=== PATIENT | male | born 1975 | race Caucasian/White ===

== ENCOUNTER 2021-04-22 05:25 | Inpatient (IN) | payer BC ==
[2021-04-22] MEDS ORDERED: SODIUM CHLORIDE 0.9% 500 ML INFUS.BAG IV ONE (06:32)
[2021-04-22] MEDS ORDERED: chlordiazePOXIDE HCL 25 MG CAPSULE PO ONE (06:43)
[2021-04-22 07:04] LABS: HEMATOCRIT 18.3 % (35.4-49); MCH 37.7 pg (25.7-33.7); MCHC 33.7 g/dl (32.0-35.9); MEAN CELL VOLUME 111.9 fl (80-96); MEAN PLT VOLUME 9.7 fl (7.5-11.1); PLATELET COUNT 146 10^3/uL (134-434); RBC 1.63 M/mm3 (4.00-5.60); RDW 14.4 % (11.9-15.9)
[2021-04-22 07:09] LABS: HEMOGLOBIN 6.2 GM/dL (11.7-16.9)
[2021-04-22 07:10] LABS: CALCIUM 7.4 mg/dL (8.5-10.1); LIPASE 339 U/L (73-393)
[2021-04-22 07:11] LABS: ALBUMIN 2.2 g/dl (3.4-5.0)
[2021-04-22 07:14] LABS: CREATININE 2.6 mg/dL (0.55-1.3)
[2021-04-22 07:15] LABS: BILIRUBIN,TOTAL 1.4 mg/dL (0.2-1)
[2021-04-22] MEDS ORDERED: PANTOPRAZOLE SODIUM 40 MG VIAL IVPUSH ONE ×2 (07:16→07:26)
[2021-04-22] MEDS ORDERED: CEFTRIAXONE 1,000 MG in DEXTROSE 5%-WATER - 50 ML IVPB ONE (07:17)
[2021-04-22] MEDS ORDERED: PANTOPRAZOLE SODIUM 80 MG in SODIUM CHLORIDE 100 ML IVPB SCH (07:17)
[2021-04-22] MEDS ORDERED: THIAMINE HCL 200 MG/2 ML VIAL IVPB ONE (07:24)
[2021-04-22] MEDS ORDERED: FOLIC ACID INJECTION - 1 MG, THIAMINE HCL 100 MG, MULTIVIT INJECTION ADULT 10 ML in SOD... IVPB ONE (07:24)
[2021-04-22] MEDS ORDERED: CEFTRIAXONE 1 GM/50 ML BAG ONE (07:29)
[2021-04-22] MEDS ORDERED: PANTOPRAZOLE SODIUM 40 MG/100 ML BAG IVPB ONE (07:29)
[2021-04-22 07:30] LABS: MAGNESIUM 2.1 mg/dL (1.8-2.4)
[2021-04-22] MEDS ORDERED: LORazepam 2 MG/ML SDV VIAL IVPUSH ONE ×3 (07:33→21:27)
[2021-04-22] MEDS ORDERED: THIAMINE HCL 200 MG/2 ML VIAL ONE (08:31)
[2021-04-22 08:55] LABS: LACTIC ACID 11.1 mmol/L (0.4-2.0)
[2021-04-22 09:17] LABS: INR 1.85 (0.83-1.09); PROTHROMBIN TIME (PATIENT) 22.3 SEC (9.7-13.0)
[2021-04-22 09:19] LABS: ACTIVATED PTT 28.9 SECONDS (25.2-36.5)
[2021-04-22] MEDS ORDERED: diazePAM CARPU-JECT 10 MG/2 ML DISP.SYRIN IVPUSH STA (10:07)
[2021-04-22] MEDS ORDERED: DEXMEDETOMIDINE IN 0.9 % NACL 400 MCG/100 ML VIAL IVPB SCH (10:15)
[2021-04-22] MEDS ORDERED: PHYTONADIONE 10 MG/1 ML AMP SQ ONE (10:15)
[2021-04-22] MEDS: OCTREOTIDE ACETATE 200 MCG, OCTREOTIDE ACETATE 1,000 MCG in DEXTROSE 5%-WATER - 496 ML IVPB SCH (10:27)
[2021-04-22] MEDS: PANTOPRAZOLE SODIUM 80 MG in SODIUM CHLORIDE 100 ML IVPB SCH ×2 (10:41→20:51)
[2021-04-22] MEDS ORDERED: PT OWN MED DRAWER 7, Y5N ONE ×2 (10:53→17:30)
[2021-04-22] MEDS: DEXMEDETOMIDINE IN 0.9 % NACL 400 MCG/100 ML VIAL IVPB SCH (10:54)
[2021-04-22 12:00] LABS: ANISOCYTOSIS 2+; MACROCYTOSIS 2+; PLATELET ESTIMATE DECREASED
[2021-04-22] MEDS: SODIUM CHLORIDE 1,000 ML IV SCH ×2 (12:13→20:40)
[2021-04-22 14:21] LABS: PHOSPHOROUS 2.1 mg/dL (2.5-4.9)
[2021-04-22] MEDS ORDERED: LORazepam 2 MG/ML SDV VIAL IVPUSH PRN ×2 (17:47→17:55)
[2021-04-22 19:16] LABS: HEMATOCRIT 24.5 % (35.4-49); HEMOGLOBIN 8.5 GM/dL (11.7-16.9); MCH 35.5 pg (25.7-33.7); MCHC 34.9 g/dl (32.0-35.9); MEAN CELL VOLUME 101.6 fl (80-96); RBC 2.41 M/mm3 (4.00-5.60); RDW 17.3 % (11.9-15.9); WHITE BLOOD COUNT 24.3 K/mm3 (4.0-10.0)
[2021-04-22 20:20] LABS: MEAN PLT VOLUME 10.1 fl (7.5-11.1); PLATELET COUNT 88 10^3/uL (134-434)
[2021-04-22] MEDS ORDERED: SODIUM PHOSPHATE - 15 MM in SODIUM CHLORIDE 250 ML IVPB ONE (21:57)
[2021-04-23] MEDS ORDERED: LORazepam 2 MG/ML SDV VIAL IVPUSH ONE ×4 (00:01→06:00)
[2021-04-23] MEDS: LORazepam 2 MG/ML SDV VIAL IVPUSH PRN ×2 (03:01→09:50)
[2021-04-23] MEDS ORDERED: PT OWN MED DRAWER 7, Y5N ONE (03:03)
[2021-04-23] MEDS: PANTOPRAZOLE SODIUM 80 MG in SODIUM CHLORIDE 100 ML IVPB SCH ×2 (05:32→18:22)
[2021-04-23] MEDS: SODIUM CHLORIDE 1,000 ML IV SCH ×3 (05:34→14:26)
[2021-04-23 06:49] LABS: BASO % 0.4 % (0-2.0); EOS % 0.2 % (0-4.5); HEMATOCRIT 26.2 % (35.4-49); LYMPH % 25.5 % (8-40); MCH 35.2 pg (25.7-33.7); MCHC 34.2 g/dl (32.0-35.9); MEAN CELL VOLUME 102.9 fl (80-96); MEAN PLT VOLUME 9.6 fl (7.5-11.1); MONO % 11.8 % (3.8-10.2); NEUT % 62.1 % (42.8-82.8); PLATELET COUNT 121 10^3/uL (134-434); RBC 2.55 M/mm3 (4.00-5.60); RDW 18.6 % (11.9-15.9); WHITE BLOOD COUNT 26.1 K/mm3 (4.0-10.0)
[2021-04-23 06:53] LABS: INR 1.59 (0.83-1.09); PROTHROMBIN TIME (PATIENT) 19.3 SEC (9.7-13.0)
[2021-04-23 06:55] LABS: ACTIVATED PTT 27.4 SECONDS (25.2-36.5)
[2021-04-23 07:03] LABS: CHLORIDE 114 mmol/L (98-107); SODIUM 143 mmol/L (136-145)
[2021-04-23 07:10] LABS: ANION GAP 7 MMOL/L (8-16); BLOOD UREA NITROGEN 50.9 mg/dL (7-18); CO2 22 mmol/L (21-32); GLUCOSE,RANDOM 119 mg/dL (74-106)
[2021-04-23 07:12] LABS: SGPT/ALT 55 U/L (13-61)
[2021-04-23 07:13] LABS: CREATININE 1.1 mg/dL (0.55-1.3); PHOSPHOROUS 3.4 mg/dL (2.5-4.9); SGOT/AST 94 U/L (15-37)
[2021-04-23 07:14] LABS: BILIRUBIN,TOTAL 1.7 mg/dL (0.2-1); TOT PROT 5.6 g/dl (6.4-8.2)
[2021-04-23 07:16] LABS: ALK PHOS 82 U/L (45-117)
[2021-04-23 08:20] LABS: CALCIUM 6.7 mg/dL (8.5-10.1)
[2021-04-23] MEDS ORDERED: CEFTRIAXONE 1 GM in DEXTROSE 5%-WATER - 50 ML IVPB SCH (10:00)
[2021-04-23] MEDS ORDERED: cefTRIAXone SODIUM 1 GM VIAL ONE (10:19)
[2021-04-23] MEDS ORDERED: DEXTROSE 5%-WATER - 50 ML IVPB ONE (10:19)
[2021-04-23 10:39] LABS: ANISOCYTOSIS 1+; MACROCYTOSIS 1+; PLATELET ESTIMATE DECREASED; ROULEAU 1+
[2021-04-23 10:50] LABS: URINE APPEARANCE CLEAR; URINE BILIRUBIN NEGATIVE (NEGATIVE); URINE COLOR YELLOW; URINE GLUCOSE (UA) NEGATIVE (NEGATIVE); URINE KETONE NEGATIVE (NEGATIVE); URINE LEUK ESTERASE NEGATIVE (NEGATIVE); URINE NITRITE NEGATIVE (NEGATIVE); URINE PROTEIN NEGATIVE (NEGATIVE)
[2021-04-23] MEDS: DEXMEDETOMIDINE IN 0.9 % NACL 400 MCG/100 ML VIAL IVPB SCH (16:04)
[2021-04-24] MEDS: LORazepam 2 MG/ML SDV VIAL IVPUSH PRN (00:56)
[2021-04-24 06:38] LABS: BASO % 0.4 % (0-2.0); EOS % 1.2 % (0-4.5); HEMATOCRIT 21.4 % (35.4-49); HEMOGLOBIN 7.2 GM/dL (11.7-16.9); MCH 35.3 pg (25.7-33.7); MCHC 33.6 g/dl (32.0-35.9); MEAN CELL VOLUME 104.8 fl (80-96); MEAN PLT VOLUME 8.9 fl (7.5-11.1); MONO % 12.7 % (3.8-10.2); NEUT % 61.7 % (42.8-82.8); PLATELET COUNT 99 10^3/uL (134-434); RBC 2.04 M/mm3 (4.00-5.60); RDW 19.5 % (11.9-15.9); WHITE BLOOD COUNT 11.2 K/mm3 (4.0-10.0)
[2021-04-24 06:48] LABS: INR 1.68 (0.83-1.09)
[2021-04-24 06:55] LABS: CHLORIDE 123 mmol/L (98-107); SODIUM 149 mmol/L (136-145)
[2021-04-24 06:59] LABS: MAGNESIUM 2.8 mg/dL (1.8-2.4)
[2021-04-24 07:03] LABS: PHOSPHOROUS 2.6 mg/dL (2.5-4.9)
[2021-04-24 07:05] LABS: ALBUMIN 1.6 g/dl (3.4-5.0); ANION GAP 5 MMOL/L (8-16); CO2 21 mmol/L (21-32); GLUCOSE,RANDOM 109 mg/dL (74-106)
[2021-04-24 07:08] LABS: BILIRUBIN,DIRECT 0.7 mg/dL (0.0-0.2); CREATININE 0.8 mg/dL (0.55-1.3); SGOT/AST 76 U/L (15-37); SGPT/ALT 52 U/L (13-61)
[2021-04-24 07:09] LABS: TOT PROT 4.7 g/dl (6.4-8.2)
[2021-04-24 07:11] LABS: ALK PHOS 75 U/L (45-117); BILIRUBIN,TOTAL 1.7 mg/dL (0.2-1)
[2021-04-24] MEDS: PANTOPRAZOLE SODIUM 80 MG in SODIUM CHLORIDE 100 ML IVPB SCH ×2 (07:11→07:12)
[2021-04-24] MEDS: DEXMEDETOMIDINE IN 0.9 % NACL 400 MCG/100 ML VIAL IVPB SCH ×2 (07:12→17:22)
[2021-04-24 07:14] LABS: BLOOD UREA NITROGEN 24.4 mg/dL (7-18); CALCIUM 6.7 mg/dL (8.5-10.1)
[2021-04-24] MEDS ORDERED: LACTATED RINGERS SOLUTION 1,000 ML/1,000 ML INFUS.BAG IV SCH ×3 (08:00→15:38)
[2021-04-24] MEDS ORDERED: LORazepam 2 MG/ML SDV VIAL IVPUSH PRN (08:18)
[2021-04-24] MEDS ORDERED: cefTRIAXone SODIUM 1 GM VIAL ONE (09:23)
[2021-04-24] MEDS ORDERED: DEXTROSE 5%-WATER - 50 ML IVPB ONE (09:24)
[2021-04-24] MEDS: CEFTRIAXONE 1 GM in DEXTROSE 5%-WATER - 50 ML IVPB SCH (09:30)
[2021-04-24 11:51] LABS: HEMATOCRIT 23.3 % (35.4-49); HEMOGLOBIN 7.9 GM/dL (11.7-16.9); MCH 35.5 pg (25.7-33.7); MCHC 33.8 g/dl (32.0-35.9); MEAN PLT VOLUME 8.8 fl (7.5-11.1); PLATELET COUNT 105 10^3/uL (134-434); RBC 2.21 M/mm3 (4.00-5.60); WHITE BLOOD COUNT 11.5 K/mm3 (4.0-10.0)
[2021-04-24] MEDS ORDERED: AMINO ACIDS 4.25%/D5W 1,000 ML IV SCH (15:00)
[2021-04-24] MEDS: MULTIVIT INJ. ADULT COMBO WITH VIT K 1 COMBO 10 ML VIAL IV SCH (17:21)
[2021-04-24] MEDS: THIAMINE HCL 200 MG/2 ML VIAL IVPB SCH (18:05)
[2021-04-24] MEDS: PANTOPRAZOLE SODIUM 40 MG VIAL IVPUSH SCH (22:37)
[2021-04-25 07:10] LABS: HEMATOCRIT 23.3 % (35.4-49); HEMOGLOBIN 8.1 GM/dL (11.7-16.9); MCH 36.1 pg (25.7-33.7); MCHC 34.7 g/dl (32.0-35.9); MEAN CELL VOLUME 104.1 fl (80-96); MEAN PLT VOLUME 9.5 fl (7.5-11.1); PLATELET COUNT 133 10^3/uL (134-434); RBC 2.23 M/mm3 (4.00-5.60); RDW 19.8 % (11.9-15.9); WHITE BLOOD COUNT 12.3 K/mm3 (4.0-10.0)
[2021-04-25 07:28] LABS: BLOOD UREA NITROGEN 14.7 mg/dL (7-18)
[2021-04-25 07:31] LABS: CREATININE 0.7 mg/dL (0.55-1.3)
[2021-04-25 07:32] LABS: BILIRUBIN,TOTAL 1.8 mg/dL (0.2-1); TOT PROT 5.6 g/dl (6.4-8.2)
[2021-04-25] MEDS ORDERED: DEXTROSE 5%-WATER - 50 ML IVPB ONE (08:02)
[2021-04-25] MEDS ORDERED: cefTRIAXone SODIUM 1 GM VIAL ONE (08:02)
[2021-04-25] MEDS: KCL 10 MEQ IVPB 10 MEQ/100 ML INFUS.BAG IVPB SCH ×2 (08:08→08:59)
[2021-04-25] MEDS: CEFTRIAXONE 1 GM in DEXTROSE 5%-WATER - 50 ML IVPB SCH (08:59)
[2021-04-25] MEDS: THIAMINE HCL 200 MG/2 ML VIAL IVPB SCH (08:59)
[2021-04-25] MEDS: PANTOPRAZOLE SODIUM 40 MG VIAL IVPUSH SCH ×2 (08:59→21:06)
[2021-04-25] MEDS ORDERED: PT OWN MED DRAWER 7, Y5N ONE (09:56)
[2021-04-25] MEDS ORDERED: FOLIC ACID 5 MG/1 ML SQ SCH (10:00)
[2021-04-25] MEDS ORDERED: LACTATED RINGERS SOLUTION 1,000 ML/1,000 ML INFUS.BAG IV SCH ×2 (11:30→11:32)
[2021-04-25] MEDS ORDERED: LORazepam 0.5 MG TABLET PO ONE (13:17)
[2021-04-25] MEDS ORDERED: LORazepam 1 MG TABLET PO PRN (13:19)
[2021-04-25] MEDS ORDERED: NADOLOL 20 MG TABLET (FP) PO ONE (15:00)
[2021-04-25] MEDS ORDERED: POTASSIUM CHLORIDE ORAL LIQUID 20 MEQ/15 ML PO ONE (18:39)
[2021-04-25] MEDS: MULTIVIT INJ. ADULT COMBO WITH VIT K 1 COMBO 10 ML VIAL IV SCH (19:42)
[2021-04-25] MEDS: LACTATED RINGERS SOLUTION 1,000 ML/1,000 ML INFUS.BAG IV SCH ×2 (19:43→23:09)
[2021-04-25] MEDS: THIAMINE HCL 100 MG TABLET (FP) PO SCH (21:06)
[2021-04-25] MEDS ORDERED: THIAMINE HCL 100 MG TABLET (FP) PO SCH (22:00)
[2021-04-26] MEDS ORDERED: THIAMINE HCL 100 MG TABLET (FP) PO SCH (10:00)
[2021-04-26] MEDS ORDERED: NADOLOL 20 MG TABLET (FP) PO SCH (10:00)
[2021-04-26] MEDS ORDERED: FOLIC ACID 1 MG TABLET (FP) PO SCH (10:00)
[2021-04-26] MEDS ORDERED: MULTIVITAMINS (DAILY MVI) TABLET (FP) PO SCH (10:00)
[2021-04-26] MEDS ORDERED: CEFTRIAXONE 1 GM in DEXTROSE 5%-WATER - 50 ML IVPB SCH (10:00)
[2021-04-26] MEDS ORDERED: cefTRIAXone SODIUM 1 GM VIAL ONE (10:19)
[2021-04-26] MEDS ORDERED: DEXTROSE 5%-WATER - 50 ML IVPB ONE (10:19)
[2021-04-26] MEDS: MULTIVITAMINS (DAILY MVI) TABLET (FP) PO SCH (10:30)
[2021-04-26] MEDS: FOLIC ACID 1 MG TABLET (FP) PO SCH (10:30)
[2021-04-26] MEDS: THIAMINE HCL 100 MG TABLET (FP) PO SCH ×2 (10:30→22:04)
[2021-04-26] MEDS: NADOLOL 20 MG TABLET (FP) PO SCH (10:30)
[2021-04-26] MEDS: LACTATED RINGERS SOLUTION 1,000 ML/1,000 ML INFUS.BAG IV SCH ×3 (10:33→20:30)
[2021-04-26] MEDS: PANTOPRAZOLE SODIUM 40 MG VIAL IVPUSH SCH ×2 (10:33→22:04)
[2021-04-26 11:10] LABS: EOS % 3.2 % (0-4.5); HEMOGLOBIN 8.2 GM/dL (11.7-16.9); LYMPH % 16.7 % (8-40); MCH 35.4 pg (25.7-33.7); MCHC 34.2 g/dl (32.0-35.9); MEAN CELL VOLUME 103.3 fl (80-96); MEAN PLT VOLUME 9.2 fl (7.5-11.1); NEUT % 67.1 % (42.8-82.8); PLATELET COUNT 166 10^3/uL (134-434); RBC 2.32 M/mm3 (4.00-5.60); RDW 19.1 % (11.9-15.9); WHITE BLOOD COUNT 15.5 K/mm3 (4.0-10.0)
[2021-04-26 11:16] LABS: INR 1.39 (0.83-1.09); PROTHROMBIN TIME (PATIENT) 16.9 SEC (9.7-13.0)
[2021-04-26 11:33] LABS: BLOOD UREA NITROGEN 10.9 mg/dL (7-18); CALCIUM 7.1 mg/dL (8.5-10.1)
[2021-04-26 11:36] LABS: CREATININE 0.8 mg/dL (0.55-1.3)
[2021-04-26 11:54] LABS: ALBUMIN 2.1 g/dl (3.4-5.0)
[2021-04-26 11:55] LABS: CALCIUM 7.3 mg/dL (8.5-10.1)
[2021-04-26 11:58] LABS: BILIRUBIN,DIRECT 0.9 mg/dL (0.0-0.2); CREATININE 0.9 mg/dL (0.55-1.3)
[2021-04-26 11:59] LABS: BILIRUBIN,TOTAL 1.8 mg/dL (0.2-1); TOT PROT 5.9 g/dl (6.4-8.2)
[2021-04-26] MEDS: CEFUROXIME AXETIL 500 MG TABLET PO SCH (18:23)
[2021-04-26] MEDS: LACTULOSE 20 GM/30 ML UDC (FOR ORAL USE ONLY) PO SCH (22:03)
[2021-04-27] MEDS: LACTATED RINGERS SOLUTION 1,000 ML/1,000 ML INFUS.BAG IV SCH ×3 (07:14→21:15)
[2021-04-27] MEDS: OCTREOTIDE ACETATE 200 MCG, OCTREOTIDE ACETATE 1,000 MCG in DEXTROSE 5%-WATER - 496 ML IVPB SCH (07:15)
[2021-04-27 09:12] LABS: BASO % 1.4 % (0-2.0); EOS % 3.9 % (0-4.5); HEMATOCRIT 21.5 % (35.4-49); HEMOGLOBIN 7.4 GM/dL (11.7-16.9); LYMPH % 24.2 % (8-40); MCH 35.2 pg (25.7-33.7); MCHC 34.2 g/dl (32.0-35.9); MEAN CELL VOLUME 102.8 fl (80-96); MONO % 13.8 % (3.8-10.2); NEUT % 56.7 % (42.8-82.8); PLATELET COUNT 155 10^3/uL (134-434); RBC 2.09 M/mm3 (4.00-5.60); RDW 18.9 % (11.9-15.9); WHITE BLOOD COUNT 13.1 K/mm3 (4.0-10.0)
[2021-04-27 09:13] LABS: INR 1.49 (0.83-1.09); PROTHROMBIN TIME (PATIENT) 17.8 SEC (9.7-13.0)
[2021-04-27] MEDS: PANTOPRAZOLE SODIUM 40 MG VIAL IVPUSH SCH (09:23)
[2021-04-27] MEDS: LACTULOSE 20 GM/30 ML UDC (FOR ORAL USE ONLY) PO SCH ×2 (09:23→21:11)
[2021-04-27] MEDS: THIAMINE HCL 100 MG TABLET (FP) PO SCH ×2 (09:24→21:11)
[2021-04-27] MEDS: CEFUROXIME AXETIL 500 MG TABLET PO SCH ×2 (09:24→18:23)
[2021-04-27] MEDS: MULTIVITAMINS (DAILY MVI) TABLET (FP) PO SCH (09:24)
[2021-04-27] MEDS: FOLIC ACID 1 MG TABLET (FP) PO SCH (09:24)
[2021-04-27] MEDS: NADOLOL 20 MG TABLET (FP) PO SCH (09:24)
[2021-04-27 09:33] LABS: ALBUMIN 1.7 g/dl (3.4-5.0); BLOOD UREA NITROGEN 8.8 mg/dL (7-18)
[2021-04-27 09:34] LABS: CALCIUM 7.2 mg/dL (8.5-10.1)
[2021-04-27 09:36] LABS: BILIRUBIN,DIRECT 0.7 mg/dL (0.0-0.2); CREATININE 0.8 mg/dL (0.55-1.3)
[2021-04-27 09:38] LABS: BILIRUBIN,TOTAL 1.4 mg/dL (0.2-1); TOT PROT 5.3 g/dl (6.4-8.2)
[2021-04-27 13:03] VITALS: BMI 31.6
[2021-04-27 17:08] LABS: GLIADIN ANTIBODY IGA 7 units (0-19); GLIADIN ANTIBODY IGG 2 units (0-19); TRANSGLUTAMINASE IGG 5 U/mL (0-5)
[2021-04-28 08:36] LABS: EOS % 3.6 % (0-4.5); HEMATOCRIT 21.5 % (35.4-49); HEMOGLOBIN 7.5 GM/dL (11.7-16.9); LYMPH % 26.3 % (8-40); MCH 35.7 pg (25.7-33.7); MEAN CELL VOLUME 102.1 fl (80-96); MEAN PLT VOLUME 9.3 fl (7.5-11.1); MONO % 14.6 % (3.8-10.2); NEUT % 54.5 % (42.8-82.8); PLATELET COUNT 166 10^3/uL (134-434); RBC 2.11 M/mm3 (4.00-5.60); RDW 18.2 % (11.9-15.9); WHITE BLOOD COUNT 10.5 K/mm3 (4.0-10.0)
[2021-04-28 08:58] LABS: BLOOD UREA NITROGEN 6.7 mg/dL (7-18); CALCIUM 7.1 mg/dL (8.5-10.1)
[2021-04-28 08:59] LABS: ALBUMIN 1.7 g/dl (3.4-5.0); MAGNESIUM 2.2 mg/dL (1.8-2.4)
[2021-04-28 09:01] LABS: BILIRUBIN,DIRECT 0.7 mg/dL (0.0-0.2); CREATININE 0.6 mg/dL (0.55-1.3); PHOSPHOROUS 3.1 mg/dL (2.5-4.9)
[2021-04-28 09:02] VITALS: BP 128/65; PULSE 90; TEMP 99.5
[2021-04-28 09:03] LABS: BILIRUBIN,TOTAL 1.4 mg/dL (0.2-1); TOT PROT 5.3 g/dl (6.4-8.2)
[2021-04-28] MEDS ORDERED: PT OWN MED DRAWER 7, Y5N ONE (09:32)
[2021-04-28] MEDS: THIAMINE HCL 100 MG TABLET (FP) PO SCH (09:34)
[2021-04-28] MEDS: LACTULOSE 20 GM/30 ML UDC (FOR ORAL USE ONLY) PO SCH (09:34)
[2021-04-28] MEDS: CEFUROXIME AXETIL 500 MG TABLET PO SCH ×2 (09:34→18:01)
[2021-04-28] MEDS: FOLIC ACID 1 MG TABLET (FP) PO SCH (09:35)
[2021-04-28] MEDS: MULTIVITAMINS (DAILY MVI) TABLET (FP) PO SCH (09:35)
[2021-04-28] MEDS ORDERED: NADOLOL 20 MG TABLET (FP) PO SCH (10:00)
== END 2021-04-28 18:30 | disposition home or self-care (01) | DRG 280 ==
LOC: JER 05:25 → JERBED 07:44 → JICU 09:31 → J5S 04-25 17:26
PROVIDERS: ADMIT Internal Medicine Pulmonary Disease; ATTEND Internal Medicine
PROC: 30233N1 Transfusion of Nonautologous Red Blood Cells into Peripheral Vein, Percutaneous Approach (ICD-10-PCS; 2021-04-22)
PROC: 06L38CZ Occlusion of Esophageal Vein with Extraluminal Device, Via Natural or Artificial Opening Endoscopic (ICD-10-PCS; principal; 2021-04-27 11:45)
DX: K70.30 Alcoholic cirrhosis of liver without ascites (principal); I85.11 Secondary esophageal varices with bleeding; F10.230 Alcohol dependence with withdrawal, uncomplicated; K70.10 Alcoholic hepatitis without ascites; D64.9 Anemia, unspecified; E87.2 Acidosis; R00.0 Tachycardia, unspecified; D72.829 Elevated white blood cell count, unspecified; N17.9 Acute kidney failure, unspecified; D69.6 Thrombocytopenia, unspecified; I24.8 Other forms of acute ischemic heart disease; K57.90 Diverticulosis of intestine, part unspecified, without perforation or abscess without bleeding; R74.01 Elevation of levels of liver transaminase levels
CPT/HCPCS: 36415; 36430; 70450-TC; 71045-TC-FY; 71275-TC; 74174-TC; 74176-TC; 80048; 80053; 80076; 80307; 81003; 82105; 82140; 82150; 82272; 82550; 82553; 82728; 82784; 83010; 83516; 83540; 83550; 83605; 83615; 83690; 83735; 84100; 84146; 84484; 85025; 85027; 85045; 85610; 85730; 86038; 86706; 86803; 86850; 86900; 86901; 86922; 87040; 87086; 87340; 87517; 93005; 93010; 99285-25; C9803; P9058; Q9967; U0003; U0005